=== PATIENT | male | born 1985 | race Caucasian/White ===

== ENCOUNTER 2016-12-31 14:02 | Emergency (ER) | payer SELFPAY ==
[~2016-12-31] VITALS: Ht 170.2 cm; Wt 61.2 kg
[~2016-12-31 14:02] MED LIST: NO ROUTINE MEDS
--- OUTSIDE RECORDS SUMMARY | 2016-12-31 14:05 | XMS REPORT | Continuity of Care Document ---
Author Author [facility] Organization [facility] Address Unknown Phone Unavailable Support Name Relationship Address Phone BETTYE ENG MD Caregiver [address] [place] [address] [place] [phone] Unavailable Insurance Providers Guarantor Ashley Carmichael Address [address] [place] [address] Email DENIED/NO TO PT PORT Payer Self Pay Subscriber's Name AmolAshley Relationship 20 Self Advance Directives Directive Response Recorded Date/Time Advanced Directives Type None 09/08/16 3:38am Chief Complaint and Reason for Visit Chief Complaint Upper Extremity Injury Reason for Visit [id number] Problems Active Problems Medical Problem Onset Date Status 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 Unknown Acute Fracture of fourth metacarpal bone Unknown Acute Fracture of fourth metacarpal bone Unknown Acute Hand laceration involving tendon Unknown Acute Hand laceration involving tendon Unknown Acute Right hand pain Unknown Acute Past Problems Medical Problem Onset Date Unspecified sprain of right thumb, initial encounter Unknown Medications Current Home Medications Medication Dose Units Route Directions Days Qty Instructions Start Date No Routine Meds 11/20/15 Social History Social History Problem Response Recorded Date/Time Onset Date Status Chewing Tobacco Status No 09/08/2016 3:45am Not Applicable Not Applicable Hx Substance Use No 09/08/2016 3:45am Not Applicable Not Applicable Hx Alcohol Use No 09/08/2016 3:45am Not Applicable Not Applicable Has the pt used tobacco in the last 12 months Yes 03/27/2015 9:18am Not Applicable Not Applicable Tobacco Usage smoke 02/10/2014 6:20pm Not Applicable Not Applicable Query Response Start Date Stop Date Smoking Status Current every day smoker Hospital Discharge Instructions No hospital discharge instructions. Plan of Care Discharge Date 09/08/16 5:15am Disposition 01 DISCHARGED HOME, SELF-CARE Condition at Discharge Stable Instructions/Education Provided Finger Sprain How To Perform RICE (Rest, Ice, Compress, Elevate) Prescriptions See Medication Section Additional Instructions/Education Wear splint for one week, if symptoms not improving follow-up with orthopedist of choice Recommend ibuprofen and Tylenol as needed for pain, follow instructions about icing X-RAY INSTRUCTIONS: Your X-ray has been interpreted by the Emergency physician. Your X-ray will be re-read by a radiologist within 24 hours. If the interpretation differs from what you have been told, you will be notified at the phone number you provided at registration. Your local primary care physician will also receive a copy of the Radiologist's report. Care Plan and Goals Physician Care Plan Problem: Right thumb sprain Goal: Follow up with primary care provider Instructions: Take medications and follow care plan as discussed/written Functional Status No functional status results. Allergies, Adverse Reactions, Alerts No known allergies. Immunizations Query Response on File Recorded Date/Time Hx Influenza Vaccination No 05/09/15 1:55pm Hx Pneumococcal Vaccination No 05/09/15 1:55pm Hx Tetanus, Diptheria, Pertussis No 05/09/15 1:55pm Hx Influenza Vaccination No 05/09/15 1:55pm Hx Tetanus, Diptheria, Pertussis No 05/09/15 1:55pm Vital Signs Acute Vital Signs Vital Response Date/Time Temperature (Fahrenheit) 98.3 deg F (96.8 - 99.1) 09/08/2016 5:15am Temperature (Calculated Celsius) 36.48091 degrees C (36.0 - 37.3) 09/08/2016 5:15am Pulse Rate (adult) 110 bpm (60 - 100) 09/08/2016 5:15am Respiratory Rate 16 breaths/min (10 - 20) 09/08/2016 5:15am O2 Sat by Pulse Oximetry 97 % (90 - 100) 09/08/2016 5:15am Blood Pressure 137/76 mm Hg 09/08/2016 5:15am Height (Feet) 5 feet 09/08/2016 3:38am Height (Inches) 7.00 inches 09/08/2016 3:38am Weight (Kilograms) 65.400 kg 09/08/2016 3:38am Body Mass Index (BMI) 22.0 09/08/2016 3:38am Results No known relevant diagnostic tests, laboratory data and/or discharge summary. Procedures No known history of procedures. Encounters Encounter Location Arrival/Admit Date Discharge/Depart Date Attending Provider Departed Emergency Room [facility] 09/08/16 3:26am 09/08/16 5: 15am BETTYE ENG MD Recent Diagnosis
[2016-12-31 14:07] VITALS: Ht 170.2 cm; Wt 61.2 kg
--- NOTE | 2016-12-31 14:15 | NUR ---
TO LOBBY TO AWAIT AN OPEN RM
[2016-12-31] MEDS ORDERED: QUET200T PO (15:17)
--- NOTE | 2016-12-31 15:37 | NUR ---
XRAY PATIENT TO RADIOLOGY PER WC, STABLE.
--- NOTE | 2016-12-31 15:43 | NUR ---
ROOM CHANGE TO WELLS CHAIR 8
--- NOTE | 2016-12-31 15:51 | DI ---
Indication: ITS.REASON: HIT A WALL, HAND SWELLING PROCEDURE: HAND RIGHT 3 VIEW: Encounter: Initial Comparison: September 08, 2016 Findings: There is no acute fracture, dislocation or malalignment identified. Prior internally fixed fourth metacarpal fracture with a plate which is stable in alignment. Dense 9 mm long foreign body in the thenar region is also unchanged. 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 Impression: No acute osseous abnormality. .
--- NOTE | 2016-12-31 16:08 | ERPDOC ---
Departure Disposition Decision Date: Dec 31, 2016 Disposition Decision Time: 16:06 Disposition: 01 DISCHARGED HOME, SELF-CARE Impression Impression Impression: Primary Impression: Hand contusion Condition: Stable Seen By: Mid-level only Referrals: [facility] follow up in 7 days if pain is still present. Patient Instructions: Contusion in Adults (ED) Problems/Meds/Labs Reviewed?: Yes Medications reviewed and manag: Yes Additional Instructions: USE SEVERO WRAP FOR COMPRESSION AND COMFORT. TAKE IBUPROFEN OR TYLENOL FOR PAIN. ICE ,ON 20 MINUTES AND OFF 20 MINUTES , WHILE PAIN IS PRESENT. Follow up care ordered?: Yes Mental Status: Alert, Oriented HPI General Chief Complaint: Upper Extremity Injury Stated Complaint: POSS R HAND FX Time Seen by Provider: 15:33 Source: patient Exam Limitations: no limitations HPI Hand/Forearm Initial Comments patient hit wall 3 days ago and has a pain right hand. Hx of previous hand surgery due to similar incident and has metal plate on his 4th metacarpal Occurred At: home Onset: Rapid Duration: 12-24 hrs Location: right: thumb 1 - tenderness 2 - tenderness Method of Injury: other (struck wall with his fist ) Modifying Factors: IMPROVES WITH: immobilization, rest, WORSE WITH: jarring, movement Associated Symptoms: bruising, pain with grasp, swelling, DENIES: numbness, weakness Allergies: Coded Allergies: No Known Allergies (Unverified , 09/08/16) Past History Past Medical History Pt denies signifigant PMH Surgical History Joint: hand Family History Family PMH: FOUND: other Vaccines Hx Influenza Vaccination: No Hx Pneumococcal Vaccination: No Hx Tetanus, Diptheria, Pertuss: No Social History Tobacco Usage: smoke Alcohol Usage: none Drug Usage: none Sexuality: female partner Residence: home Review of Systems Constitutional Constitutional: DENIES: chills, fever Eyes General: DENIES: burning, itching ENMT Ears: DENIES: pain Balance: DENIES: vertigo Sinuses: DENIES: congestion, rhinorrhea Mouth/Throat: DENIES: painful swallowing, sore throat Cardiovascular Cardiac: DENIES: chest pain, orthopnea Pulmonary Respiratory: cough, DENIES: pleuritic chest pain GI Upper Abdomen: DENIES: nausea, pain Lower Abdomen: DENIES: diarrhea General: DENIES: dysuria, frequency Musculoskeletal General: pain, see HPI, tenderness Integumentary Skin: DENIES: itching, rash Neurological General: DENIES: headache, numbness Hematologic/Lymphatic Hematologic/Lymphatic: DENIES: anemia, easy bruising Exam General General Nourishment: well nourished, well developed, appears stated age, no acute distress Vital Signs: Temperature: 98.4, Source: Oral, Heart Rate: 87, Respiratory Rate : 19, BP: 137/81, Pulse Oximetry: 97 Height (Feet): 5 Height (Inches): 7.00 Fastrak Hand/Forearm Hand/Forearm : Upper Extremity: Right Elbow: NOT FOUND: deformity, ecchymosis, erythema Forearm: NOT FOUND: ecchymosis, erythema, swelling, tender Wrist: NOT FOUND: ecchymosis, erythema, swelling Hand: ecchymosis, swelling, tender, NOT FOUND: deformity, erythema Fingers: NOT FOUND: deformity, ecchymosis, erythema, swelling, tender Radial Pulse: 4+ Ulnar Pulse: 4+ Respiratory (brief) Respiratory Brief: FOUND: clear all rudolph, equal bilaterally Integumentary (brief) Integumentary Brief: FOUND: dry, pink, warm Neurologic RN Documented GCS Eye Opening: Verbal: Motor: Total: Differential Diagnoses Considering: Amputation, Cellulitis, Compartment Syndrome, Dislocation, Sprain , Strain Progress Results/Orders Orders Procedure Category Date Status Time Hand Right 3 View RAD 12/31/16 Resulted 15:28 Premade Splint EDM 12/31/16 Transmitted 16:04 JAN RODAS APRN Dec 31, 2016 16:08
[2016-12-31 16:11] VITALS: BP 137/81; PULSE 87; RESP 19; TEMP 98.4; O2SAT 97
--- NOTE | 2016-12-31 16:11 | NUR ---
DEPART PATIENT LEAVES ED PRIOR TO DC VITAL SIGNS BEING OBTAINED AND PRIOR TO RN PLACING PATIENT IN SPLINT. PATIENT SITTING AT REGISTRATION DESK WHEN WRITTEN INSTRUCTIONS GIVEN.
== END 2016-12-31 16:11 | disposition home or self-care (01) ==
LOC: ED 14:02
DX: S60.221A Contusion of right hand, initial encounter (principal); X83.8XXA Intentional self-harm by other specified means, initial encounter; Y93.9 Activity, unspecified; Y92.009 Unspecified place in unspecified non-institutional (private) residence as the place of occurrence of the external cause; Y99.8 Other external cause status